=== PATIENT | female | born 1940 | race African-American/Black ===

== ENCOUNTER 2019-06-01 16:59 | Inpatient (IN) | payer MEDICARE, OTHER ==
[~2019-06-01] VITALS: Ht 157.5 cm; Wt 51.4 kg
[2019-06-01 17:16] VITALS: BP 119/79
--- NOTE | 2019-06-01 17:17 | NUR ---
ED Nurse Note: pt was brought in by ra Satya from [facility] c/o bilateral lower leg pain for 6 months denies new trauma. pt has history of dementia, able to state name and month. pt non ambulatory, hr is 130 with atrial flutter upon arriva. ermd made aware.
[2019-06-01] MEDS ORDERED: Metoprolol 5mg/5ml Inj IVP ONE ×2 (17:30→18:30)
[2019-06-01] MEDS ORDERED: Morphine Sulfate 2mg/ml Inj(IV/IM USE ONLY) IVP ONE (17:30)
--- NOTE | 2019-06-01 18:00 | NUR ---
ED Nurse Note: pt wasnt able to give urine, ermd made aware. will continue to monitor.
[2019-06-01 18:14] LABS: BASOPHILS % (AUTO) 1.4 % (0.0-2.0); HEMOGLOBIN 13.5 G/DL (12.0-16.0); LYMPHOCYTES % (AUTO) 31.1 % (20.0-45.0); MEAN CORPUSCULAR VOLUME 87 FL (80-99); MONOCYTES % (AUTO) 10.8 % (1.0-10.0); NEUTROPHILS % (AUTO) 54.8 % (45.0-75.0); PLATELET COUNT 318 K/UL (150-450); RED BLOOD COUNT 4.71 M/UL (4.20-5.40); RED CELL DISTRIBUTION WIDTH 11.2 % (11.6-14.8); WHITE BLOOD COUNT 5.5 K/UL (4.8-10.8)
[2019-06-01 18:20] LABS: ANION GAP 9 mmol/L (5-15); BLOOD UREA NITROGEN 18 mg/dL (7-18); CALCIUM 9.8 MG/DL (8.5-10.1); CARBON DIOXIDE 30 MMOL/L (21-32); CHLORIDE 106 MMOL/L (98-107); CREATININE 0.8 MG/DL (0.55-1.30); POTASSIUM 3.5 MMOL/L (3.5-5.1); SODIUM 145 MMOL/L (136-145)
[2019-06-01 18:32] LABS: ALANINE AMINOTRANSFERASE 20 U/L (12-78); ALBUMIN 3.5 G/DL (3.4-5.0); ALBUMIN/GLOBULIN RATIO 0.8 (1.0-2.7); ALKALINE PHOSPHATASE 80 U/L (46-116); ASPARTATE AMINO TRANSFERASE 20 U/L (15-37); BILIRUBIN,TOTAL 0.3 MG/DL (0.2-1.0); CKMB 2.6 NG/ML (0.0-3.6); CREATINE KINASE 76 U/L (26-308)
[2019-06-01] MEDS ORDERED: UNOBMED (18:58)
[2019-06-01 19:00] VITALS: BP 123/85
--- NOTE | 2019-06-01 19:00 | NUR ---
ED Nurse Note: pt hr still on 128bpm, ermd made aware and ordered metoprolol and given iv, pt able to tolerate. will continue to monitor.
--- NOTE | 2019-06-01 19:08 | Emergency Room Report ---
History of Present Illness General Chief Complaint: Pain Source: Patient, Medical Record, EMS Present Illness HPI 78-year-old female presents ED for evaluation. Brought in by EMS from senior living facility. Noted to have arm and leg pain. Has had this pain for many months now. Denies any recent fall or injury. Pain is dull, 4 out of 10, nonradiating. Tachycardic as per EMS. EKG shows atrial flutter. Denies chest pain or shortness of breath. Denies fevers or chills. No other aggravating relieving factors. Denies any other associated symptoms Allergies: Coded Allergies: BUPROPION (Verified Allergy, Unknown, 06/01/19) Patient History Past Medical History: COPD Past Surgical History: none Pertinent Family History: none Social History: Denies: smoking, alcohol use, drug use Last Menstrual Period: na Now: No Immunizations: UTD Reviewed Nursing Documentation: PMH: Agreed; PSxH: Agreed Nursing Documentation-PMH Hx COPD: Yes Review of Systems All Other Systems: negative except mentioned in HPI Physical Exam Vital Signs Date Time Temp Pulse Resp B/P (MAP) Pulse Ox O2 Delivery O2 Flow Rate FiO2 06/01/19 17:04 97.9 130 18 119/79 (92) 96 Room Air Sp02 EP Interpretation: reviewed, normal General Appearance: no apparent distress, alert, GCS 15, non-toxic Head: normocephalic, atraumatic Eyes: bilateral eye normal inspection, bilateral eye PERRL ENT: hearing grossly normal, normal pharynx, no angioedema, normal voice Neck: full range of motion, supple/symm/no masses Respiratory: chest non-tender, lungs clear, normal breath sounds, speaking full sentences Cardiovascular #1: no edema, tachycardia Cardiovascular #2: 2+ carotid (R), 2+ carotid (L), 2+ radial (R), 2+ radial (L) , 2+ dorsalis pedis (R), 2+ dorsalis pedis (L) Gastrointestinal: normal bowel sounds, non tender, soft, non-distended, no guarding, no rebound Rectal: deferred Genitourinary: normal inspection, no CVA tenderness Musculoskeletal: back normal, gait/station normal, normal range of motion, non- tender Neurologic: alert, oriented x3, responsive, motor strength/tone normal, sensory intact, speech normal Psychiatric: judgement/insight normal, memory normal, mood/affect normal, no suicidal/homicidal ideation Reflexes: 3+ bicep (R), 3+ bicep (L), 3+ tricep (R), 3+ tricep (L), 3+ knee (R) , 3+ knee (L) Lymphatic: no adenopathy Procedures Critical Care Time Critical Care Time i. I feel this is a highly complex case requiring extensive working including EKG/Rhythm strip, Xray/CT/US, Blood/urine lab work, repeat exams while in ED, and administration of strong opiates/narcotics for pain control, admission to hospital or close patient follow up. Total time: 50 min bedside evaluation and treatment excludes procedures (EKG). Reason for critical care: aflutter, elevated troponin Possible complications: hypotension, hypertension, ID, shock, arrhythmias, metabolic acidosis, end organ damage, respiratory failure. Interventions: labs, IVfs, EKG, CXR, lopressor Course: Brought in by EMS for generalized pain. Tachycardic. EKG shows atrial flutter. No chest pain. Given IV fluids. Given Lopressor with heart rate improving. Troponin 0.365. Chest x-ray unremarkable Consultations: nursing staff, EMS, family Performed by: Dr Downing Tolerated well condition = serious j. because of unstable vital signs this patient had a condition that could potentially threaten life or limb. I feel this is a critical patient who required my full attention while patient was considered critical. Total Critical Care Time excluding procedures was greater than 50 minutes Medical Decision Making Diagnostic Impression: Primary Impression: Atrial flutter Qualified Codes: I48.92 - Unspecified atrial flutter Additional Impression: Elevated troponin ER Course Hospital Course 78 yo F presents to ED with aflutter Differential diagnoses include: ID/unstable angina, contusion, muscle strain, PTX, rib fracture Clinical course Patient placed on stretcher. on monitoring specialist. After initial history and physical I ordered labs, EKG, chest x-ray, IVFs, lopressor labs reviewed- no leukocytosis, hb/hct stable, electrolytes ok, trop 0.365, BNP elevated EKG -aflutter no acute ischemic changes interpreted by me Chest x-ray- no acute process Denies chest pain Heart rate improving after IV fluids, Lopressor, Cardizem. Case discussed with Dr. Salmon and he agreed to accept the patient to his service for further care and support I. I feel this is a highly complex case requiring extensive working including EKG/Rhythm strip, Xray/CT/US, Blood/urine lab work, repeat exams while in ED, and administration of strong opiates/narcotics for pain control, admission to hospital or close patient follow up. Diagnosis - aflutter, elevated troponin admitted to telemetry in serious condition Labs Test 06/01/19 17:33 White Blood Count 5.5 K/UL (4.8-10.8) Red Blood Count 4.71 M/UL (4.20-5.40) Hemoglobin 13.5 G/DL (12.0-16.0) Hematocrit 41.0 % (37.0-47.0) Mean Corpuscular Volume 87 FL (80-99) Mean Corpuscular Hemoglobin 28.5 PG (27.0-31.0) Mean Corpuscular Hemoglobin Concent 32.8 G/DL (32.0-36.0) Red Cell Distribution Width 11.2 % (11.6-14.8) Platelet Count 318 K/UL (150-450) Mean Platelet Volume 6.3 FL (6.5-10.1) Neutrophils (%) (Auto) 54.8 % (45.0-75.0) Lymphocytes (%) (Auto) 31.1 % (20.0-45.0) Monocytes (%) (Auto) 10.8 % (1.0-10.0) Eosinophils (%) (Auto) 2.0 % (0.0-3.0) Basophils (%) (Auto) 1.4 % (0.0-2.0) Sodium Level 145 MMOL/L (136-145) Potassium Level 3.5 MMOL/L (3.5-5.1) Chloride Level 106 MMOL/L (98-107) Carbon Dioxide Level 30 MMOL/L (21-32) Anion Gap 9 mmol/L (5-15) Blood Urea Nitrogen 18 mg/dL (7-18) Creatinine 0.8 MG/DL (0.55-1.30) Estimat Glomerular Filtration Rate > 60 mL/min (>60) Glucose Level 130 MG/DL (74-106) Calcium Level 9.8 MG/DL (8.5-10.1) Total Bilirubin 0.3 MG/DL (0.2-1.0) Aspartate Amino Transf (AST/SGOT) 20 U/L (15-37) Alanine Aminotransferase (ALT/SGPT) 20 U/L (12-78) Alkaline Phosphatase 80 U/L (46-116) Total Creatine Kinase 76 U/L (26-308) Creatine Kinase MB 2.6 NG/ML (0.0-3.6) Creatine Kinase MB Relative Index 3.4 Troponin I 0.365 ng/mL (0.000-0.056) Pro-B-Type Natriuretic Peptide 575 pg/mL (0-125) Total Protein 7.9 G/DL (6.4-8.2) Albumin 3.5 G/DL (3.4-5.0) Globulin 4.4 g/dL Albumin/Globulin Ratio 0.8 (1.0-2.7) EKG Diagnostic Results Rate: tachycardiac Rhythm: other - aflutter ST Segments: no acute changes ASA given to the pt in ED: No Rhythm Strip Diag. Results EP Interpretation: yes Rhythm: no PVC's, no ectopy Chest X-Ray Diagnostic Results Chest X-Ray Diagnostic Results : Chest X-Ray Ordered: Yes # of Views/Limited/Complete: 1 View Indication: Other EP Interpretation: Yes Interpretation: no consolidation, no effusion, no pneumothorax, no acute cardiopulmonary disease Impression: No acute disease Electronically Signed by: Electronically signed by Galdino Downing MD Last Vital Signs Date Time Temp Pulse Resp B/P (MAP) Pulse Ox O2 Delivery O2 Flow Rate FiO2 06/01/19 17:40 130 113/82 06/01/19 17:16 97.9 18 96 Room Air Status: improved Disposition: ADMITTED INPATIENT Condition: Serious Referrals: NON PHYSICIAN (PCP) Galdino Downing MD Jun 01, 2019 19:08
--- NOTE | 2019-06-01 19:10 | NUR ---
HAND-OFF: Report given to Lsia LU. pt hr 128, cardizem was given iv. will continue to monitor. pt placed on bedpad, havent given urine sample yet. will continue to monitor.
[2019-06-01] MEDS ORDERED: dilTIAZem HCl 25mg/5ml Inj IVP ONE (19:15)
--- NOTE | 2019-06-01 20:00 | NUR ---
ED Nurse Note: Confirmed with Abigail that patient is not being transferred to [place], and is being admitted to [facility]; Abigail states "under her Medicare".
[2019-06-01] MEDS ORDERED: GABAPENTIN300 MG ORAL (20:46)
[2019-06-01] MEDS ORDERED: LEVETIRACETAM500 MG ORAL (20:46)
[2019-06-01] MEDS ORDERED: DOCUSATE SODIU100 MG ORAL ×2 (20:46)
[2019-06-01] MEDS ORDERED: CLOPIDOGREL75 MG ORAL (20:46)
[2019-06-01] MEDS ORDERED: CITALOPRAM HBR20 M1 ORAL (20:46)
[2019-06-01] MEDS ORDERED: SENNA8.6 M2 PO (20:46)
[2019-06-01] MEDS ORDERED: LISINOPRIL20 MG ORAL (20:46)
[2019-06-01] MEDS ORDERED: FAMOTIDINE20 MG ORAL (20:46)
[2019-06-01] MEDS ORDERED: ACETAMINOPHEN500 M3 ORAL (20:46)
[2019-06-01] MEDS ORDERED: AMLODIPINE BESYL5 MG ORAL (20:46)
[2019-06-01] MEDS ORDERED: BISACODYL5 MG RECTAL (20:50)
[2019-06-01] MEDS ORDERED: CATAPRES0.1 MG ORAL (20:50)
[2019-06-01] MEDS ORDERED: HYDRALAZINE HCL50 MG ORAL (20:50)
[2019-06-01] MEDS ORDERED: ZOFRAN4 M3 ORAL (20:50)
[2019-06-01] MEDS ORDERED: HYOSYNE0.125 MG/1 PO (20:50)
--- NOTE | 2019-06-01 21:00 | NUR ---
TRANSFER TO FLOOR: Patient transferred to as ordered, per Dr Salmon. Report given to TABITHA Knight. Belongings and medications given to . Family and or S/O informed of transfer.
[2019-06-01 21:05] VITALS: BP 163/99
--- NOTE | 2019-06-01 21:05 | NUR ---
NURSE NOTES: Received pt from ED via tracey. Pt transferred to 214-2 without any incident. Received report from TABITHA Gonzalez. Pt is A/Ox2-3. [place] pt to room, unit, and hospital policies. monitor car operator is in placed; pt is ASariah Oreilly on secured entrance monitor. IV site intact, asymptomatic, and patent. Belongings list checked and accounted. Received orders from Dr. Salmon. Will note and carry out.
--- NOTE | 2019-06-01 22:15 | NUR ---
NURSE NOTES: Notified Dr. Salmon that pt had multiples pauses on bus monitor at 2121. Total pauses were 7, each ranging from 3-5 seconds. Pt is asymptomatic. Dr. Salmon said youth director consult will see pt in the morning.
[2019-06-01] MEDS: HydrALAZINE 50mg tab ORAL SCH (22:46)
[2019-06-01] MEDS: dilTIAZem HCl 30mg tab ORAL SCH (22:47)
[2019-06-01] MEDS: Enoxaparin 40mg Inj SUBQ SCH (22:48)
[2019-06-02] VITALS (8 sets, daily range): BP systolic 139–190; BP diastolic 71–110
--- NOTE | 2019-06-02 03:07 | NUR ---
NURSE NOTES: Contacted [facility] regarding dates of pt's Influenza and pneumococcal vaccination. Facility staff said she is unable to pull up records at this time and said to call back at 8am. Will endorse it to morning RN.
[2019-06-02] MEDS: dilTIAZem HCl 30mg tab ORAL SCH (05:40)
[2019-06-02] MEDS: HydrALAZINE 50mg tab ORAL SCH ×3 (05:40→21:36)
[2019-06-02 06:49] LABS: EOSINOPHILS % (AUTO) 4.2 % (0.0-3.0); HEMATOCRIT 38.7 % (37.0-47.0); HEMOGLOBIN 12.2 G/DL (12.0-16.0); LYMPHOCYTES % (AUTO) 50.3 % (20.0-45.0); MEAN CORPUSCULAR VOLUME 91 FL (80-99); MONOCYTES % (AUTO) 9.8 % (1.0-10.0); NEUTROPHILS % (AUTO) 34.7 % (45.0-75.0); PLATELET COUNT 307 K/UL (150-450); RED BLOOD COUNT 4.24 M/UL (4.20-5.40); RED CELL DISTRIBUTION WIDTH 11.8 % (11.6-14.8); WHITE BLOOD COUNT 6.6 K/UL (4.8-10.8)
[2019-06-02 07:16] LABS: ANION GAP 9 mmol/L (5-15); BLOOD UREA NITROGEN 12 mg/dL (7-18); CALCIUM 9.5 MG/DL (8.5-10.1); CARBON DIOXIDE 28 MMOL/L (21-32); CHLORIDE 108 MMOL/L (98-107); CREATININE 0.6 MG/DL (0.55-1.30); POTASSIUM 3.3 MMOL/L (3.5-5.1); SODIUM 145 MMOL/L (136-145)
--- NOTE | 2019-06-02 07:37 | NUR ---
NURSE NOTES: Received report from TABITHA nKight. Patient in bed resting, no active s/s cardiac, respiratory distress noticed at this time. Patient on room air, AOx2, SR with HR 67. Endorsed at 2122, patient was having multiple pauses lasting 3-5 seconds, and Dr. Salmon made aware and made aware of troponin level. Bed in lowest position, side rails upx2, call light within reach, bed alarm on. Will continue to monitor.
--- NOTE | 2019-06-02 07:41 | NUR ---
HAND-OFF: Report given to TABITHA Haynes.
[2019-06-02] MEDS ORDERED: Sennosides 8.6mg tab ORAL SCH (09:00)
[2019-06-02] MEDS ORDERED: Citalopram Hydrobromide 10mg Tab ORAL SCH (09:00)
[2019-06-02] MEDS ORDERED: Lisinopril 20mg tab ORAL SCH (09:00)
--- NOTE | 2019-06-02 09:34 | NUR ---
NURSE NOTES: Called [facility] tele: [phone], regarding flu/PNA vaccine, per alf was not able to find record of them.
--- NOTE | 2019-06-02 10:21 | NUR ---
NURSE NOTES: Dr. Salmon made aware of K level today 3.3. Per Dr. Salmon, KCl 40 mEq PO once. Order noted, entered, carried out. Will continue to monitor.
--- NOTE | 2019-06-02 11:18 | NUR ---
*-* INSURANCE *-* CLINICALS HAVE BEEN FAXED TO: [facility] P: [phone]
--- NOTE | 2019-06-02 12:49 | Cardiac Electrophysiology PN ---
Subjective Subjective [id number] NSTEMI Tachybrady Atrial flutter Needs Cardiac cath and flutter ablation May need PPM implant also Objective Last 24 Hour Vital Signs Date Time Temp Pulse Resp B/P (MAP) Pulse Ox O2 Delivery O2 Flow Rate FiO2 06/02/19 09:00 Room Air 06/02/19 08:40 139/71 06/02/19 08:40 62 139/71 06/02/19 08:00 60 06/02/19 08:00 97.0 62 19 139/71 (93) 95 06/02/19 05:40 67 180/102 06/02/19 05:40 180/102 06/02/19 04:00 97.1 75 19 172/104 (126) 94 06/02/19 03:24 63 06/02/19 00:00 65 06/02/19 00:00 97.5 69 17 169/96 (120) 93 06/01/19 22:47 68 163/99 06/01/19 22:46 163/99 06/01/19 22:22 Room Air 06/01/19 21:19 125 06/01/19 21:05 96.9 68 18 163/99 (120) 94 06/01/19 21:00 97.9 128 24 123/85 99 Room Air 06/01/19 19:15 128 123/85 06/01/19 19:10 128 123/85 06/01/19 19:00 97.9 128 24 123/85 99 Room Air 06/01/19 18:11 97.9 06/01/19 17:40 130 113/82 06/01/19 17:16 97.9 130 18 119/79 96 Room Air 06/01/19 17:04 97.9 130 18 119/79 (92) 96 Room Air Intake and Output 06/01/19 06/02/19 19:00 07:00 Intake Total 500 ml Balance 500 ml Intake IV Total 500 ml # Bowel Movements 1 Laboratory Tests Test 06/01/19 17:33 06/02/19 06:05 06/02/19 11:30 White Blood Count 5.5 K/UL (4.8-10.8) 6.6 K/UL (4.8-10.8) Red Blood Count 4.71 M/UL (4.20-5.40) 4.24 M/UL (4.20-5.40) Hemoglobin 13.5 G/DL (12.0-16.0) 12.2 G/DL (12.0-16.0) Hematocrit 41.0 % (37.0-47.0) 38.7 % (37.0-47.0) Mean Corpuscular Volume 87 FL (80-99) 91 FL (80-99) Mean Corpuscular Hemoglobin 28.5 PG (27.0-31.0) 28.8 PG (27.0-31.0) Mean Corpuscular Hemoglobin Concent 32.8 G/DL (32.0-36.0) 31.5 G/DL (32.0-36.0) L Red Cell Distribution Width 11.2 % (11.6-14.8) L 11.8 % (11.6-14.8) Platelet Count 318 K/UL (150-450) 307 K/UL (150-450) Mean Platelet Volume 6.3 FL (6.5-10.1) L 6.7 FL (6.5-10.1) Neutrophils (%) (Auto) 54.8 % (45.0-75.0) 34.7 % (45.0-75.0) L Lymphocytes (%) (Auto) 31.1 % (20.0-45.0) 50.3 % (20.0-45.0) H Monocytes (%) (Auto) 10.8 % (1.0-10.0) H 9.8 % (1.0-10.0) Eosinophils (%) (Auto) 2.0 % (0.0-3.0) 4.2 % (0.0-3.0) H Basophils (%) (Auto) 1.4 % (0.0-2.0) 1.0 % (0.0-2.0) Sodium Level 145 MMOL/L (136-145) 145 MMOL/L (136-145) Potassium Level 3.5 MMOL/L (3.5-5.1) 3.3 MMOL/L (3.5-5.1) L Chloride Level 106 MMOL/L (98-107) 108 MMOL/L (98-107) H Carbon Dioxide Level 30 MMOL/L (21-32) 28 MMOL/L (21-32) Anion Gap 9 mmol/L (5-15) 9 mmol/L (5-15) Blood Urea Nitrogen 18 mg/dL (7-18) 12 mg/dL (7-18) Creatinine 0.8 MG/DL (0.55-1.30) 0.6 MG/DL (0.55-1.30) Estimat Glomerular Filtration Rate > 60 mL/min (>60) mL/min (>60) Glucose Level 130 MG/DL (74-106) H 90 MG/DL (74-106) Calcium Level 9.8 MG/DL (8.5-10.1) 9.5 MG/DL (8.5-10.1) Total Bilirubin 0.3 MG/DL (0.2-1.0) Aspartate Amino Transf (AST/SGOT) 20 U/L (15-37) Alanine Aminotransferase (ALT/SGPT) 20 U/L (12-78) Alkaline Phosphatase 80 U/L (46-116) Total Creatine Kinase 76 U/L (26-308) Creatine Kinase MB 2.6 NG/ML (0.0-3.6) Creatine Kinase MB Relative Index 3.4 Troponin I 0.365 ng/mL (0.000-0.056) 1.428 ng/mL (0.000-0.056) Pro-B-Type Natriuretic Peptide 575 pg/mL (0-125) H Total Protein 7.9 G/DL (6.4-8.2) Albumin 3.5 G/DL (3.4-5.0) Globulin 4.4 g/dL Albumin/Globulin Ratio 0.8 (1.0-2.7) Luigi Burnette MD Jun 02, 2019 12:49
--- NOTE | 2019-06-02 16:19 | History & Physical ---
History and Physical History & Physicial #[id number] Wei Salmon MD Jun 02, 2019 16:19
--- NOTE | 2019-06-02 16:38 | NUR ---
NURSE NOTES: Spoke with Saira complex case manager, from [place], awaiting for bed. Will continue to follow up.
--- NOTE | 2019-06-02 17:00 | Consultation ---
DATE OF CONSULTATION: 06/02/2019 CARDIAC ELECTROPHYSIOLOGY CONSULTATION CONSULTING PHYSICIAN: Luigi Garcia M.D. REFERRING PHYSICIAN: Wei Salmon MD REASON FOR CONSULTATION: Atrial flutter with rapid ventricular response as well as pauses of more than 5 seconds. HISTORY OF PRESENT ILLNESS: The patient is a 78-year-old lady who is a [facility] patient was brought from intermediate facility by paramedics for leg pain and arm pain, having recent fall. By paramedics, the patient was tachycardic. EKG confirmed atrial flutter with rapid ventricular response. The patient was admitted and overnight converted to sinus rhythm and sinus junctional rhythm with more than 5 second pauses. Even when she was in sinus rhythm, she had a pause of again more than 4 to 5 seconds. Cardiac electrophysiology consultation was requested for further evaluation and management. REVIEW OF SYSTEMS: Negative other than what was mentioned in history of present illness. PAST MEDICAL HISTORY: As mentioned above. FAMILY HISTORY: Noncontributory. SOCIAL HISTORY: She lives in intermediate. Does not smoke or drink alcohol. PHYSICAL EXAMINATION: VITAL SIGNS: Show blood pressure 180/102, currently 139/71, pulse 62 in sinus rhythm, respirations 18, and she is afebrile. HEAD AND SHOWS: No JVD. LUNGS: Decreased breath sounds. CARDIOVASCULAR: Regular S1 and S2 with no gallop or murmur. ABDOMEN: Soft. EXTREMITIES: No pitting edema. LABORATORY AND DIAGNOSTIC DATA: Her labs show white count 6.6, hemoglobin 12.7, hematocrit 38.7, and platelet count 307. Sodium 141, potassium 3.3, BUN of 12, creatinine 0.6. Troponin is 0.36 and 1.428. BNP of 575. ASSESSMENT AND PLAN: 1. Atrial flutter with rapid ventricular response as well as pauses of more than 5 seconds, tachy-leidy syndrome. Best option would be to eliminate atrial flutter by atrial flutter ablation. The patient may need a permanent pacemaker implantation any ways, but hopefully for flutter ablation keep the patient off any AV crystal [place]. At the meantime start the patient on anticoagulation and we will get an echocardiogram. 2. Hypertension. The patient is on Norvasc 5 mg daily, lisinopril 20 mg daily, and Cardizem 30 mg every 8 hours. I would continue Cardizem and put her on low-dose metoprolol 25 mg b.i.d. in view of her elevated troponin and the fact that she is also calcium-channel [place] amlodipine. 3. Hypertension. Adjust antihypertensives as mentioned above. The patient on amlodipine, lisinopril, and low-dose beta-dakotah. 4. Non-ST elevation myocardial infarction with troponin of 0.2 to 1.4. Repeat troponin. Repeat EKG and echocardiogram. Put the patient on aspirin and statin as well. 5. Hypokalemia. Potassium was replaced. Thank you very much, Dr. Salmon, for allowing me to participate in the care of this patient. Please do not hesitate to contact me for any questions regarding my evaluation. Sincerely, Luigi Garcia M.D. DR: Elian JOB#: [id number] CC:
--- NOTE | 2019-06-02 17:48 | Cardiology Report ---
APPROVED REPORT EXAM: Two-dimensional and M-mode echocardiogram with Doppler and color Doppler. INDICATION Congestive Heart Failure M-Mode DIMENSIONS IVSd1.3 (0.7-1.1cm)Left Atrium (MM)3.5 (1.6-4.0cm) LVDd4.1 (3.5-5.6cm)Aortic Root2.9 (2.0-3.7cm) PWd1.0 (0.7-1.1cm)Aortic Cusp Exc.1.7 (1.5-2.0cm) LVDs2.9 (2.5-4.0cm) PWs1.3 cm Normal left ventricular chamber size, systolic function and wall motion. Left ventricular ejection fraction estimated to be 60-65 %. Moderate left ventricular hypertrophy by 2-D. No evidence of pericardial effusion. All other cardiac chamber sizes are within normal limits. Focal aortic valve sclerosis with adequate cusp excursion. Thickened mitral valve leaflets with normal excursion. Mitral annulus and aortic root calcification. Pulmonic valve not well visualized. Normal tricuspid valve structure. IVC at normal size with physiologic collapse. A color flow and spectral Doppler study was performed and revealed: Moderate aortic regurgitation. Mild mitral regurgitation. Mitral diastolic velocities suggest reduced left ventricular relaxation c/w mild LV diastolic dysfunction (Grade I). Mild tricuspid regurgitation. Tricuspid systolic velocities suggests peak right ventricular systolic pressure of 44 mmHg, consistent with mild to moderate pulmonary hypertension. No pulmonic regurgitation present.
--- NOTE | 2019-06-02 17:58 | NUR ---
MONUMENT SETTER HELPER NOTES RECEIVED A CALL FROM JAMAL GIL FROM [facility], MADE AWARE OF PT REQUIRING A CARDIAC CATH D/T ELEVATED TROPONIN. CLINICALS FAXED. MD TO MD TO BE COMPLETED SO PT CAN TRANSFER INTO NETWORK. MADE AWARE. SPOKE WITH PT'S SISTER BREONNA IN REGARDS TO TRANSFER, BREONNA IS IN AGREEMENT WITH THE TRANSFER AT THIS TIME. JAMAL CASEYVXS-[phone]
--- NOTE | 2019-06-02 18:21 | Cardiology Report ---
APPROVED REPORT EKG Measurement Heart [id number] CO [id number] [id number] Atrial flutter with 2:1 AV conduction Nonspecific intraventricular block Abnormal ECG
--- NOTE | 2019-06-02 19:30 | History and Physical Report ---
DATE OF ADMISSION: 06/01/2019 REASON: The patient in the emergency room for low blood pressure. HISTORY OF PRESENT ILLNESS: This is a 78-year-old female with history of dementia, COPD who was brought in by EMS from assisted living facility for hypotension and tachycardia. She also was found to have nonspecific arm and leg pain as well as a cough. The patient has severe dementia, therefore history was obtained through records. She had a blood pressure yesterday of 85/62 with a pulse of 127. The patient's EKG in the emergency room shows atrial flutter with heart rate up to 130s. The patient also was noted to have pauses of greater than 5 seconds on the cafeteria monitor while here. She denies any chest pain or shortness of breath. PAST MEDICAL HISTORY: COPD, dementia. PAST SOCIAL HISTORY: The patient is a former smoker. However, does not use any drugs. She does not drink alcohol. [facility]. MEDICATIONS: Reviewed and on chart. ALLERGIES: Wellbutrin, statins, as well as bupropion. FAMILY HISTORY: Noncontributory. PHYSICAL EXAMINATION: Limited due to the patient's mental status. VITAL SIGNS: Temperature is 97.9, pulse is 62, blood pressure 139/71, and O2 saturation is 95% on room air. GENERAL: No acute distress. The patient is alert, awake, oriented times person. HEENT: Normocephalic/atraumatic. NECK: Supple. No JVD. LUNGS: Clear to auscultation bilaterally. No crackles, rhonchi, or rales. CARDIOVASCULAR: Regular rate and rhythm. Normal S1, S2. ABDOMEN: Soft, nontender, nondistended. EXTREMITIES: No clubbing, cyanosis, or edema. PSYCHIATRIC: The patient has appropriate mood and affect. NEUROLOGIC: The patient is able to move all extremities and does follow commands. LABORATORY AND DIAGNOSTIC DATA: CBC, white count 6.6, hemoglobin 12.2, platelet count of 307,000. BMP, sodium is 145, potassium 3.3, chloride 108, CO2 28, BUN is 12, creatinine is 0.6. Troponin 0.365 followed by 1.428. EKG shows atrial flutter, rate of of 130. Chest x-ray, no acute process. ASSESSMENT: 1. Atrial flutter with RVR. 2. Dementia. 3. Elevated troponin, likely secondary to atrial flutter with RVR versus less likely NSTEMI. 4. COPD. 5. Hypertensive urgency. PLAN: 1. The patient admitted to telemetry. 2. Our gear lapper with EP has seen the patient and given the patient's pauses of greater than 5 seconds has concern for tachy-leidy syndrome. The patient needs cardiac catheterization for atrial flutter ablation as well as a pacemaker placement, which is not available here. 3. I will attempt to transfer the patient to [facility]. 4. Metoprolol 12.5 mg p.o. b.i.d. 5. DVT prophylaxis. Lovenox 40 mg subcutaneous daily. 6. The patient is a DNR. 7. Waiting for transfer to [place] for pacemaker placement and ablation. Wei Salmon MD DR: HUNG JOB#: [id number] CC:
--- NOTE | 2019-06-02 19:35 | NUR ---
NURSE NOTES: Per Dr. Salmon, order aspirin 81mg PO Daily, Statin. Dr. Salmon made aware of patient allergic to statins, per MD, no need to order statins, when patient discharge to [place], discharge with hospital medication. Order noted, endorsed to oncoming nurse.
--- NOTE | 2019-06-02 19:43 | NUR ---
HAND-OFF: Report given to TABITHA Phan.
--- NOTE | 2019-06-02 19:45 | NUR ---
NURSE NOTES: RECEIVED PATIENT AWAKE, LYING IN SEMI HERRERA'S; RESTING COMFORTABLY; NO SIGNS OF ACUTE CARDIORESPIRATORY DISTRESS; DENIES PAIN AT THIS TIME. A/O X2, CONFUSION NOTED. CHECKED IV SITE PATENT AND FLUSHED. NO ERYTHEMA, BLEEDING OR INFILTRATION NOTED. BED AT LOWEST POSITION, BRAKES ON, SIDERAILS X 3. CALL LIGHT WITHIN REACH. WILL CONTINUE TO MONITOR.
--- NOTE | 2019-06-02 20:22 | NUR ---
NURSE NOTES: Received call from Anand from [facility]. Pt will go to room 7322, picking tech at 10 pm 06/02/19. Call [phone] or [phone] for report.
[2019-06-02] MEDS ORDERED: ACETAMINOPHEN325 M1 ORAL ×2 (20:41→21:11)
[2019-06-02] MEDS ORDERED: Metoprolol Tartrate 12.5mg TAB ORAL SCH (21:00)
--- NOTE | 2019-06-02 21:15 | NUR ---
NURSE NOTES: Gave report to Peter from [facility] ([phone]), endorsed plan of care and pickup time at 2200.
[2019-06-02] MEDS ORDERED: AMLODIPINE BESYL5 MG ORAL (21:17)
[2019-06-02] MEDS ORDERED: ASPIRIN81 MG ORAL (21:21)
[2019-06-02] MEDS ORDERED: LOVENOX10 M4 SUBQ (21:23)
[2019-06-02] MEDS ORDERED: METOPROLOL TART25 MG ORAL (21:24)
[2019-06-02] MEDS ORDERED: ZOFRAN 4 MG4 MG/2 ML IV (21:24)
[2019-06-02] MEDS: Enoxaparin 40mg Inj SUBQ SCH (21:37)
--- NOTE | 2019-06-02 22:21 | NUR ---
NURSE NOTES: Pt discharged in stable condition with Ambulance Personnel ACLS. IV site d/winston by patient. No acute s/s of distress noted. Sister Lucrecia Gann notified of transfer to [facility], family verbalized understanding for plan of care. Belongings upon discharge - one sock. Bed in lowest position. no wounds noted upon discharge, skin intact.
--- NOTE | 2019-06-02 22:51 | Discharge Summary ---
Discharge Summary Hospital Course Date of Admission Jun 01, 2019 at 18:02 Date of Discharge Jun 02, 2019 at 22:21 Admitting Diagnosis aflutter HPI Ariela Abdalla is a 78 year old female who was admitted on Jun 01, 2019 at 18: 02 for Aflutter w/ RvR she was seen by cardiology and started on metoprolol 12.5mg PO BID with rate control She had a troponin that trended up to 1.4 which is likely demand ischemia in setting of tachycardia (started on ASA) environmental monitoring technician showed 5-7 sec pauses She was transfered to [facility] for placement of pacemaker and cath induced ablation/LHC she was in stable condition on transfer Discharge Condition Upon Discharge: stable Discharge Disposition Patient was discharged to [place] Wei Cottrell MD Jun 02, 2019 22:51
--- NOTE | 2019-06-03 01:10 | NUR ---
NURSE NOTES: Sister (Lucrecia Gann) - [phone] notified of missing t-shirt and sock. Per sister, "I had the shirt thrown away because it was dirty."
[2019-06-03] MEDS ORDERED: Aspirin Baby 81mg ORAL SCH (09:00)
--- NOTE | 2019-06-03 10:09 | NUR ---
*-* INSURANCE *-* UPDATED CLINICALS AND DISCHARGE SUMMARY HAVE BEEN FAXED TO: [facility] P: [phone]
== END 2019-06-02 22:21 | disposition short-term general hospital (02) | DRG 309 ==
LOC: EDBD 16:59 → EMR 17:50 → EDBD 17:50 → 2E 18:02 → EDBEDREQ 20:24
DX: I48.92 Unspecified atrial flutter (principal); I24.8 Other forms of acute ischemic heart disease; J44.9 Chronic obstructive pulmonary disease, unspecified; R00.0 Tachycardia, unspecified; E87.6 Hypokalemia; F03.90 Unspecified dementia, unspecified severity, without behavioral disturbance, psychotic disturbance, mood disturbance, and anxiety; I16.0 Hypertensive urgency
CPT/HCPCS: 36415; 71045; 80048; 80053; 80299; 82550; 82553; 83880; 84484; 85025; 87081; 93005; 93306; 96361; 96374; 96375; 96376; 99291; J8499